=== PATIENT | male | born 1985 | race Caucasian/White ===

== ENCOUNTER 2021-05-15 11:40 | Emergency (ER) | payer SELFPAY ==
[~2021-05-15] VITALS: Ht 160 cm; Wt 77.0 kg
[2021-05-15 11:55] VITALS: BP 131/73
[2021-05-15] MEDS ORDERED: MOXI3DRO12 RIGHTEYE (14:55)
== END 2021-05-15 15:29 | disposition left against medical advice (07) ==
LOC: ER 11:40
DX: B30.1 Conjunctivitis due to adenovirus (principal)
CPT/HCPCS: 99281; 99283